=== PATIENT | female | born 1940 | race Caucasian/White ===

== ENCOUNTER 2024-07-23 12:58 | Inpatient (IN) | payer MEDICARE ==
[~2024-07-23] VITALS: Ht 152.4 cm; Wt 64.0 kg
[2024-07-23] VITALS (20 sets, daily range): BP systolic 71–243; BP diastolic 42–193; TEMP 97.1–98.8; O2SAT 96–100
[2024-07-23] MEDS ORDERED: IPRATROPIUM NEB FS 0.5 MG/2.5 ML AMPUL.NEB ONE (13:13)
[2024-07-23] MEDS ORDERED: ALBUTEROL FS 2.5 MG/3 ML VIAL.NEB ONE (13:13)
[2024-07-23] MEDS ORDERED: methylPREDNISolone SOD SUCC 125 MG/2ML VIAL ONE (13:14)
[2024-07-23] MEDS: IPRATROPIUM NEB FS 0.5 MG/2.5 ML AMPUL.NEB NEB ONE (13:15)
[2024-07-23] MEDS: ALBUTEROL FS 2.5 MG/3 ML VIAL.NEB CONTNEB ONE (13:15)
[2024-07-23] MEDS: methylPREDNISolone SOD SUCC 125 MG/2ML VIAL IV ONE (13:17)
[2024-07-23 13:27] LABS: BASOPHILS # (AUTO) 0.1 K/uL (0.0-0.2); BASOPHILS % (AUTO) 0.4 % (0.0-2.0); EOSINOPHILS # (AUTO) 0.1 K/uL (0.0-0.7); EOSINOPHILS % (AUTO) 0.2 % (0.0-6.0); HEMATOCRIT 45 % (33-45); HEMOGLOBIN 14.8 g/dL (11.5-14.8); LYMPHOCYTES # (AUTO) 0.6 K/uL (0.8-4.8); LYMPHOCYTES % (AUTO) 2.1 % (20.0-44.0); MEAN CORPUSCULAR HEMOGLOBIN 30 PG (26.0-33.0); MEAN CORPUSCULAR HGB CONC 33 g/dl (31.0-36.0); MEAN CORPUSCULAR VOLUME 93 fL (82-100); MONOCYTES # (AUTO) 0.1 K/uL (0.1-1.30); MONOCYTES % (AUTO) 0.4 % (2.0-12.0); NEUTROPHILS # (AUTO) 27.5 K/uL (1.8-8.9); NEUTROPHILS % (AUTO) 96.9 % (43.0-81.0); PLATELET COUNT (AUTO) 208 K/uL (150-450); RED BLOOD CELL COUNT(AUTO) 4.88 MIL/uL (4.0-5.2); RED CELL DISTRIBUTION WIDTH 16.8 % (11.5-15.0); WHITE BLOOD COUNT (AUTO) 28.4 K/uL (4.3-11.0)
[2024-07-23 13:27] LABS: ABG BASE EXCESS -12.4 mmol/L (-2.0-3.0); ABG OXYGEN SATURATION 95.7 % (94.0-98.0); ABG PCO2 24.3 mmHg (32.0-45.0); ABG PH 7.306 (7.350-7.450); ABG PO2 84.8 mmHg (83.0-108.0); ABG TOTAL HEMOGLOBIN 15.1 G/dL (12.0-16.0); COHb 0.1 % (0.5-1.5); MetHb 0.5 % (0.0-1.5); O2Hb 95.1 % (94.0-97.0); SITE, ABG RIGHT RADIAL
[2024-07-23 13:50] LABS: CARBON DIOXIDE 20 mmol/L (21-32); CHLORIDE 106 mmol/L (98-107); CREATININE 2.7 mg/dL (0.6-1.3); GLUCOSE 103 mg/dL (74-106); POTASSIUM 4.3 mmol/L (3.5-5.1); SODIUM SERUM 144 mmol/L (136-145); UREA NITROGEN, BLOOD 38 mg/dL (7-18)
[2024-07-23 13:55] LABS: ALANINE AMINOTRANSFERASE 26 U/L (12-78); ALBUMIN 3.3 g/dL (3.4-5.0); ALKALINE PHOSPHATASE 85 U/L (46-116); ASPARTATE AMINOTRANSFERASE 53 U/L (15-37); BILIRUBIN,DIRECT 0.5 mg/dL (0.0-0.2); BILIRUBIN,TOTAL 1.1 mg/dL (0.2-1.0); TOTAL PROTEIN, SERUM 7.7 g/dL (6.4-8.2)
[2024-07-23] MEDS ORDERED: ADENOSINE 6 MG/2 ML VIAL ONE ×2 (14:06→14:16)
[2024-07-23 14:07] LABS: LACTIC ACID 8.9 mmol/L (0.4-2.0)
[2024-07-23] MEDS ORDERED: FENTANYL PF 100MCG/2ML AMPUL ONE (14:18)
[2024-07-23] MEDS ORDERED: AMIN30LI66 PO (14:25)
[2024-07-23] MEDS ORDERED: MEGE400O4 PO (14:25)
[2024-07-23] MEDS ORDERED: GUAI100S9 PO (14:25)
[2024-07-23] MEDS ORDERED: NA P133E RC (14:25)
[2024-07-23] MEDS ORDERED: FURO20TA4 PO (14:25)
[2024-07-23] MEDS ORDERED: DULO30CA52 PO (14:25)
[2024-07-23] MEDS ORDERED: BISA10SU11 RC (14:25)
[2024-07-23] MEDS ORDERED: MULT-213 PO (14:25)
[2024-07-23] MEDS ORDERED: SPIR50TA5 PO (14:25)
[2024-07-23] MEDS ORDERED: ASCO500T10 PO (14:25)
[2024-07-23] MEDS ORDERED: ACET325T53 PO (14:25)
[2024-07-23] MEDS ORDERED: IPRA3AMP23 IH (14:25)
[2024-07-23] MEDS ORDERED: MAG30ORA PO (14:25)
[2024-07-23] MEDS ORDERED: CHOL200059 PO (14:25)
[2024-07-23] MEDS ORDERED: HYDR-3972 PO (14:25)
[2024-07-23] MEDS ORDERED: THIA100T88 PO (14:25)
[2024-07-23] MEDS ORDERED: SERT50TA12 PO (14:25)
[2024-07-23] MEDS ORDERED: LABE100T5 PO (14:25)
[2024-07-23] MEDS ORDERED: ONDA-97 PO (14:25)
[2024-07-23] MEDS ORDERED: TRAM50TA2 PO (14:25)
[2024-07-23] MEDS ORDERED: LACT10SO3 PO (14:25)
[2024-07-23] MEDS ORDERED: MAGN400O6 PO (14:25)
[2024-07-23] MEDS ORDERED: Magnesium 1GM/D5W 100ML PREMIX 100 ML IV ONE (14:56)
[2024-07-23] MEDS: VANCOMYCIN HCL 1 GM in IV D5W 260 ML IV ONE (15:00)
[2024-07-23] MEDS: ASPIRIN 300 MG/SUPP.RECT RC ONE (15:00)
[2024-07-23] MEDS: Magnesium 1GM/D5W 100ML PREMIX 100 ML IV SCH (15:02)
[2024-07-23] MEDS: IV NS 0.9% 1,000 ML BAG IV ONE ×2 (15:06→17:00)
[2024-07-23] MEDS: PIPERACILLIN /TAZOBACTAM 3.375 G in IV D5W 50 ML IV ONE (15:11)
[2024-07-23] MEDS: AMIODARONE 150 MG in IV D5W 100 ML IV ONE (15:36)
[2024-07-23] MEDS: AMIODARONE 450 MG in IV D5W 250 ML IV ONE (15:52)
[2024-07-23] MEDS ORDERED: ASPIRIN 300 MG/SUPP.RECT RC ONE (16:07)
[2024-07-23 16:08] LABS: INR 1.22 (0.91-1.10); PARTIAL THROMBOPLASTIN TIME 28.2 SEC (24.3-34.3); PROTHROMBIN TIME 12.8 SECS (9.2-11.1)
[2024-07-23] MEDS ORDERED: ACETAMINOPHEN 325 MG TABLET PO PRN (16:30)
[2024-07-23] MEDS ORDERED: HEPARIN INFUSION/D5W 500 ML IV PRN (16:30)
[2024-07-23] MEDS ORDERED: ONDANSETRON HCL/PF 4 MG/2 ML VIAL IVP PRN (16:30)
[2024-07-23] MEDS ORDERED: Z GUARD REMEDY 4 OZ OINT TP PRN (16:30)
[2024-07-23] MEDS ORDERED: HEPARIN SODIUM, PORCINE 5000 UNITS/1 ML VIAL ONE (16:52)
[2024-07-23] MEDS: HEPARIN SODIUM, PORCINE 5000 UNITS/1 ML VIAL IV ONE (17:04)
[2024-07-23] MEDS: HEPARIN INFUSION/D5W 500 ML IV PRN ×2 (17:10→19:20)
[2024-07-23] MEDS ORDERED: PIPERACILLIN /TAZOBACTAM 3.375 G in IV D5W 50 ML IV SCH (18:00)
[2024-07-23] MEDS ORDERED: PHENYLEPHRINE 50 MG in IV NS 0.9% 245 ML IV PRN (18:30)
[2024-07-23] MEDS: AMIODARONE 450 MG in IV D5W 241 ML IV PRN (19:17)
[2024-07-23] MEDS: ZOSYN IVPB 2.25 G in IV D5W 50ml IV SCH (20:43)
[2024-07-23] MEDS: PHENYLEPHRINE 50 MG in IV NS 0.9% 245 ML IV PRN (21:24)
[2024-07-24] VITALS (44 sets, daily range): BP systolic 71–164; BP diastolic 46–144; TEMP 97.3–97.5; O2SAT 83–100
[2024-07-24 05:17] LABS: BASOPHILS # (AUTO) 0.2 K/uL (0.0-0.2); BASOPHILS % (AUTO) 0.4 % (0.0-2.0); EOSINOPHILS # (AUTO) 0.2 K/uL (0.0-0.7); EOSINOPHILS % (AUTO) 0.4 % (0.0-6.0); HEMATOCRIT 41 % (33-45); HEMOGLOBIN 12.4 g/dL (11.5-14.8); LYMPHOCYTES # (AUTO) 1.4 K/uL (0.8-4.8); LYMPHOCYTES % (AUTO) 2.4 % (20.0-44.0); MEAN CORPUSCULAR HEMOGLOBIN 30 PG (26.0-33.0); MEAN CORPUSCULAR HGB CONC 30 g/dl (31.0-36.0); MEAN CORPUSCULAR VOLUME 98 fL (82-100); MONOCYTES # (AUTO) 2.1 K/uL (0.1-1.30); MONOCYTES % (AUTO) 3.7 % (2.0-12.0); NEUTROPHILS # (AUTO) 53.8 K/uL (1.8-8.9); NEUTROPHILS % (AUTO) 93.1 % (43.0-81.0); PLATELET COUNT (AUTO) 230 K/uL (150-450); RED BLOOD CELL COUNT(AUTO) 4.15 MIL/uL (4.0-5.2); RED CELL DISTRIBUTION WIDTH 18.5 % (11.5-15.0)
[2024-07-24 05:25] LABS: WHITE BLOOD COUNT (AUTO) 57.8 K/uL (4.3-11.0)
[2024-07-24 08:02] LABS: BAND % (MANUAL) 15 % (0.0-5.0); LYMPHOCYTES % (MANUAL) 6 % (16-48); MONOCYTES % (MANUAL) 5 % (0-11.0); NEUTROPHILS % (MANUAL) 74 (42-76)
[2024-07-24 08:03] LABS: ANISOCYTOSIS 1+; PLATELET ESTIMATE ADEQUATE
[2024-07-24 08:52] LABS: ABG OXYGEN SATURATION 97.6 % (94.0-98.0); ABG PH 7.227 (7.350-7.450); ABG PO2 103.6 mmHg (83.0-108.0); ABG TOTAL HEMOGLOBIN 13.2 G/dL (12.0-16.0); COHb 0.3 % (0.5-1.5); MetHb 0.5 % (0.0-1.5); O2Hb 96.8 % (94.0-97.0); SITE, ABG RIGHT RADIAL
[2024-07-24 09:19] LABS: ALANINE AMINOTRANSFERASE 410 U/L (12-78); ALBUMIN 2.9 g/dL (3.4-5.0); ALKALINE PHOSPHATASE 43 U/L (46-116); ASPARTATE AMINOTRANSFERASE 470 U/L (15-37); BILIRUBIN,TOTAL 1.4 mg/dL (0.2-1.0); CALCIUM, SERUM 8.1 mg/dL (8.5-10.1); CARBON DIOXIDE 16 mmol/L (21-32); CHLORIDE 103 mmol/L (98-107); CREATININE 3.7 mg/dL (0.6-1.3); GLUCOSE 249 mg/dL (74-106); PHOSPHORUS 7.5 mg/dL (2.5-4.9); TOTAL PROTEIN, SERUM 7.3 g/dL (6.4-8.2); UREA NITROGEN, BLOOD 44 mg/dL (7-18)
[2024-07-24 09:54] LABS: SODIUM SERUM 139 mmol/L (136-145)
[2024-07-24 10:32] LABS: POTASSIUM 6.5 mmol/L (3.5-5.1)
[2024-07-25] MEDS ORDERED: VANCOMYCIN 750 MG in IV D5W 250 ML IV SCH (15:00)
== END 2024-07-24 09:46 | DRG 871 ==
LOC: ER 13:03 → ICU 17:03
PROVIDERS: ADMIT Internal Medicine; ATTEND Internal Medicine
PROC: 5A09357 Assistance with Respiratory Ventilation, Less than 24 Consecutive Hours, Continuous Positive Airway Pressure (ICD-10-PCS; principal; 2024-07-23)
DX: A41.9 Sepsis, unspecified organism (principal); G93.41 Metabolic encephalopathy; I50.31 Acute diastolic (congestive) heart failure; J69.0 Pneumonitis due to inhalation of food and vomit; R53.2 Functional quadriplegia; I21.4 Non-ST elevation (NSTEMI) myocardial infarction; N17.0 Acute kidney failure with tubular necrosis; J96.01 Acute respiratory failure with hypoxia; I26.99 Other pulmonary embolism without acute cor pulmonale; I69.354 Hemiplegia and hemiparesis following cerebral infarction affecting left non-dominant side; D68.59 Other primary thrombophilia; E87.20 Acidosis, unspecified; I82.412 Acute embolism and thrombosis of left femoral vein; I82.432 Acute embolism and thrombosis of left popliteal vein; Z20.822 Contact with and (suspected) exposure to COVID-19; I11.0 Hypertensive heart disease with heart failure; K74.60 Unspecified cirrhosis of liver; M62.462 Contracture of muscle, left lower leg; M62.461 Contracture of muscle, right lower leg; M62.422 Contracture of muscle, left upper arm; Z66 Do not resuscitate; Z79.899 Other long term (current) drug therapy; J44.9 Chronic obstructive pulmonary disease, unspecified; I48.91 Unspecified atrial fibrillation; Z79.51 Long term (current) use of inhaled steroids
CPT/HCPCS: 36415; 36600; 71045-TC; 80048-TC; 80053-TC; 80076-TC; 82803-TC; 83605-TC; 83735-TC; 83880; 84100-TC; 84484-TC; 85025-TC; 85378-TC; 85730-TC; 87040-TC; 87081-TC; 93307-TC; 93970-TC; 94799-TC; A4223; G0378; J0153; J0282; J1644; J2543; J2919; J3010; J3475; J7050; J7060